=== PATIENT | male | born 1940 | race Caucasian/White ===

== ENCOUNTER 2016-10-23 13:19 | Emergency (ER) | payer OTHER ==
[~2016-10-23] VITALS: Ht 182.9 cm; Wt 90.7 kg
[~2016-10-23 13:19] MED LIST: AMLO5TAB2 PO; ASPI81TA2 PO; BENZ100C PO; CIPR250T30 PO; GUAI5SYR PO; GUAI600T38 PO; INSU100I13 SQ; INSU100V9 SQ; IPRA3AMP NEB; LEVO200T5 PO; LEVO25TA4 PO; LOSA100T6 PO; METO50TA10 PO; MULT-658 PO; PRAV40TA2 PO; PRED-220 PO; TAMS0.4C2 PO; TIOT18CA IH
--- NOTE | 2016-10-23 13:46 | PHYS DOC ---
Past Medical History Past Medical History: CAD, Diabetes-Type II, Heart Disease, Hypertension, Hypothyroid Past Surgical History: Appendectomy, Coronary Bypass Surgery Additional Past Surgical Histo: CABGx 4vessels, Thyroidectomy Alcohol Use: None Drug Use: None Adult General Chief Complaint Chief Complaint: UPPER EXTREMITY PAIN HPI HPI Patient is a 76 year old male who presents with LUE pain. Patient reports that he awoke this morning ~0630 with pain from his L mid forearm up through L upper arm. No trauma or other inciting event. Patient describes a steady aching pain that waxes/wanes without clear mitigating factors. He has tried ibuprofen for the pain. He denies any discomfort to his chest. No SOB. No other acute complaints. Review of Systems Review of Systems Constitutional: Denies fever or chills Eyes: Denies change in visual acuity or eye pain HENT: Denies nasal congestion or sore throat Respiratory: Denies cough or shortness of breath Cardiovascular: Denies chest pain GI: Denies abdominal pain, nausea, vomiting, bloody stools or diarrhea : Denies dysuria or hematuria Musculoskeletal: LUE pain Integument: Denies rash or skin lesions Neurologic: Denies headache, focal weakness or sensory changes Allergies Allergies Allergies Coded Allergies Type Severity Reaction Last Updated Verified No Known Drug Allergies 04/02/14 No Physical Exam Physical Exam Constitutional: Well developed, well nourished, no acute distress, non-toxic appearance HENT: Normocephalic, atraumatic, bilateral external ears normal Eyes: EOMI, conjunctiva normal, no discharge Neck: Normal range of motion, no stridor Cardiovascular: Heart rate normal, regular rhythm, no murmur Lungs & Thorax: Bilateral breath sounds clear to auscultation Abdomen: Bowel sounds normal, soft, non-distended, no TTP Skin: Warm, dry, no erythema, no rash Extremities: LUE visually unremarkable compared to RUE; no erythema, warmth to touch, skin lesion, bony abnormality noted; no significant TTP; full active and passive ROM; 2+ radial pulse; motor function and sensation to light touch intact Neurologic: Alert and oriented X 3, no gross deficits noted Current Patient Data Vital Signs Vital Signs Date Time Temp Pulse Resp B/P Pulse Ox O2 Delivery O2 Flow Rate FiO2 10/23/16 15:11 66 18 141/71 98 Room Air 10/23/16 13:30 98.1 98.1 Lab Values Laboratory Tests Test 10/23/16 13:55 White Blood Count 12.2x10^3/uL (4.0-11.0) H Red Blood Count 4.45x10^6/uL (4.30-5.70) Hemoglobin 13.8g/dL (13.0-17.5) Hematocrit 42.6% (39.0-53.0) Mean Corpuscular Volume 96fL (79-100) Mean Corpuscular Hemoglobin 31pg (25-35) Mean Corpuscular Hemoglobin Concent 32g/dL (31-37) Red Cell Distribution Width 13.2% (11.5-14.5) Platelet Count 155x10^3/uL (140-400) Neutrophils (%) (Auto) 67% (31-73) Lymphocytes (%) (Auto) 21% (24-48) L Monocytes (%) (Auto) 9% (0-9) Eosinophils (%) (Auto) 2% (0-3) Basophils (%) (Auto) 1% (0-3) Neutrophils # (Auto) 8.2x10^3uL (1.8-7.7) H Lymphocytes # (Auto) 2.6x10^3/uL (1.0-4.8) Monocytes # (Auto) 1.1x10^3/uL (0.0-1.1) Eosinophils # (Auto) 0.2x10^3/uL (0.0-0.7) Basophils # (Auto) 0.1x10^3/uL (0.0-0.2) Sodium Level 143mmol/L (136-145) Potassium Level 4.1mmol/L (3.5-5.1) Chloride Level 107mmol/L (98-107) Carbon Dioxide Level 29mmol/L (21-32) Anion Gap 7 (6-14) Blood Urea Nitrogen 21mg/dL (8-26) Creatinine 1.1mg/dL (0.7-1.3) Estimated GFR (Cockcroft-Gault) 65.3 Glucose Level 166mg/dL (70-99) H Calcium Level 8.9mg/dL (8.5-10.1) Troponin I Quantitative < 0.017ng/mL (0.000-0.055) Laboratory Tests 10/23/16 13:55 Laboratory Tests 10/23/16 13:55 EKG EKG EKG (my read): sinus rhythm, rate 65, LAD, IVCD, TWI leads V1-3, similar in morphology to 12/07/15 Radiology/Procedures Radiology/Procedures CXR: Impression: 1. No acute cardiopulmonary process. X-ray L elbow: Impression: No definite acute abnormality identified. Course & Med Decision Making Course & Med Decision Making Pertinent Labs and Imaging studies reviewed. (See chart for details) Patient is 76 year old male who presents with LUE pain. Suspect related to elbow , possible osteoarthritis or early bursitis. No evidence of pathology such as DVT or cellulitis. Will obtain x-ray of elbow to screen. Although patient does not have chest discomfort or SOB, must also at least entertain possibility of ACS although consider this very unlikely. Will check EKG, labs (including troponin), CXR. Patient declines need for pain medication at this time. Imaging results as above. Labs notable for mild leukocytosis (~baseline). Troponin wnl; will not pursue serial troponins given 7+ hours since symptom onset and no other concerning factors/symptoms. Discussed results with patient and visitor. Gave strict return precautions if any new symptoms such as chest discomfort or SOB. Will plan discharge home with rx for naproxen, instructions for follow up, return precautions. Dragon Disclaimer Dragon Disclaimer This electronic medical record was generated, in whole or in part, using a voice recognition dictation system. Departure Departure Impression: Primary Impression: Pain in central left upper extremity Disposition: HOME, SELF-CARE Condition: STABLE Referrals: Mirtha HICKS MD (PCP) Patient Instructions: Musculoskeletal Pain Additional Instructions: Thank you for allowing us to provide care today in the Emergency Department. Take the provided medication as directed. Take with a glass of water and something to eat. Schedule a follow up appointment with your primary care doctor. Return promptly to the Emergency Department if you develop any new or concerning symptoms. Scripts Naproxen 250 Mg [id number] Mg PO BID PRN PAIN #14 Prov:MARYAM GRULLON MD 10/23/16 MARYAM GRULLON MD Oct 23, 2016 13:46
[2016-10-23 14:04] LABS: BASO # 0.1 x10^3/uL (0.0-0.2); BASO % 1 % (0-3); EOS % 2 % (0-3); HEMATOCRIT 42.6 % (39.0-53.0); HEMOGLOBIN 13.8 g/dL (13.0-17.5); LYMPH # 2.6 x10^3/uL (1.0-4.8); LYMPH % 21 % (24-48); MEAN CORPUSCULAR HEMOGLOBIN 31 pg (25-35); MEAN CORPUSCULAR HGB CONC 32 g/dL (31-37); MEAN CORPUSCULAR VOLUME 96 fL (79-100); MONO % 9 % (0-9); NEUT % 67 % (31-73); PLATELET COUNT 155 x10^3/uL (140-400); RED BLOOD COUNT 4.45 x10^6/uL (4.30-5.70); RED CELL DISTRIBUTION WIDTH 13.2 % (11.5-14.5); WHITE BLOOD COUNT 12.2 x10^3/uL (4.0-11.0)
--- NOTE | 2016-10-23 14:13 | RAD ---
Exam: AP portable chest. History: Left upper extremity pain. Comparison: 12/07/2015. Findings: The heart and mediastinal structures are within normal limits for size. Lungs are without infiltrate. No pneumothorax or pleural effusion is appreciated. Median sternotomy wires are present. Old granulomatous disease of the chest is noted. Impression: 1. No acute cardiopulmonary process.
--- NOTE | 2016-10-23 14:15 | RAD ---
Left elbow radiographs History: Left elbow pain since 0630 hours. Comparison: None. Findings: AP, lateral, and oblique views of the left elbow. Lateral view is suboptimal as the elbow is not in 90 degrees of flexion. IV catheter is seen. No definite acute fracture or dislocation is identified. No convincing joint effusion is seen. No acute osseous abnormality is identified. No radiopaque soft tissue foreign body is seen. Impression: No definite acute abnormality identified.
[2016-10-23 14:19] LABS: CALCIUM 8.9 mg/dL (8.5-10.1); CREATININE 1.1 mg/dL (0.7-1.3); GFR 65.3; POTASSIUM 4.1 mmol/L (3.5-5.1)
[2016-10-23 15:11] VITALS: BP 141/71
[2016-10-23] MEDS ORDERED: NAPR250T2 PO (15:11)
--- NOTE | 2016-10-24 11:24 | EKG ---
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
== END 2016-10-23 15:30 | disposition home or self-care (01) ==
LOC: ER 13:19
DX: M79.602 Pain in left arm (principal); M25.522 Pain in left elbow; I11.9 Hypertensive heart disease without heart failure; I25.10 Atherosclerotic heart disease of native coronary artery without angina pectoris; E03.9 Hypothyroidism, unspecified; E11.9 Type 2 diabetes mellitus without complications; Z95.1 Presence of aortocoronary bypass graft; E89.0 Postprocedural hypothyroidism
CPT/HCPCS: 36415; 71010; 73080; 80048; 84484; 85027; 93005; 99285-25

== ENCOUNTER → 2017-05-10 | Outpatient (CLI) | payer OTHER ==
[~2017-05-10] MED LIST changes: +ASPI-630 PO; -ASPI81TA2 PO; -GUAI600T38 PO; +GUAI600T47 PO; +NAPR250T2 PO
--- NOTE | 2017-05-10 11:41 | KCIC ---
INDICATION: Congestion for 4 days. Short of air. TECHNIQUE: Two-view chest radiograph was obtained. Comparison is from October 08, 2014. FINDINGS: Nodular density in the left midlung field measures 15 mm, may be calcified. Left basilar opacity is noted with obscuring of the left hemidiaphragm. The lungs otherwise are clear. The heart is not enlarged and there is no heart failure. There is atheromatous disease in the thoracic aorta. Median sternotomy wires are noted. IMPRESSION: 1. Nodule on the left may be calcified. 2. Left basilar opacity may represent atelectasis and or infiltrate, there may also be a component of scarring given similar findings in 2014. 3. Consider CT chest to better evaluate both the nodule and the left basilar opacity. Electronically signed by: Deejay Avila MD (05/10/2017 11:38 AM) [id number]
== END | disposition home or self-care (01) ==
LOC: KCIC 11:07
PROVIDERS: ATTEND Family Medicine
DX: R09.81 Nasal congestion (principal); R06.02 Shortness of breath
CPT/HCPCS: 71020

== ENCOUNTER → 2017-05-19 | Outpatient (CLI) | payer OTHER ==
--- NOTE | 2017-05-19 14:43 | KCIC ---
EXAM: Chest, 2 views. HISTORY: Bronchitis. COMPARISON: 05/10/2017 and 10/08/2014. FINDINGS: Frontal and lateral views of the chest are obtained. There is increased nodularity within the right lower lobe and stable nodularity within the left mid thorax. There is stable left retrocardiac infiltrate or atelectasis. The heart is normal in size. There are findings consistent with CABG. IMPRESSION: 1. Increased nodular opacities within the right lower lobe. The recent interval change favors nodular infiltrate. Follow-up to confirm resolution. 2. Stable nodularity within the left mid thorax. The nearly 3 year course of stability favors benignity. 3. Suspected stable left lower lobe atelectasis or infiltrate. Electronically signed by: Awa Lyons MD (05/19/2017 2:39 PM) [id number]
== END | disposition home or self-care (01) ==
LOC: KCIC 14:08
PROVIDERS: ATTEND Family Medicine
DX: R91.8 Other nonspecific abnormal finding of lung field (principal); J40 Bronchitis, not specified as acute or chronic
CPT/HCPCS: 71020